=== PATIENT | female | born 1950 | race Caucasian/White ===

== ENCOUNTER 2018-12-17 03:41 | Emergency (ER) | payer OTHER ==
[~2018-12-17] VITALS: Ht 160 cm; Wt 86.2 kg
[~2018-12-17 03:41] MED LIST: ULTRAM50 MG PO
[2018-12-17 04:01] LABS: BASO % 0.5 % (0.0-1.0); EOS # 0.3 10*3/uL (0.0-0.4); EOS % 4.8 % (1.0-4.0); HEMATOCRIT 37.1 % (37.0-47.0); HEMOGLOBIN 11.9 g/dl (12.0-16.0); LYMPH # 1.6 10*3/uL (1.3-4.4); LYMPH % 29.4 % (27.0-41.0); MEAN CELL VOLUME 91.8 fl (81.0-99.0); MEAN CORPUSCULAR HGB 29.5 pg (27.0-31.0); MEAN CORPUSCULAR HGB CONC 32.1 g/dl (33.0-37.0); MEAN PLATELET VOLUME 10.9 fl (9.6-12.3); MONO # 0.5 10*3/uL (0.1-1.0); MONO % 8.4 % (3.0-9.0); NEUT # 3.2 10*3/uL (2.3-7.9); NEUT % 56.5 % (47.0-73.0); PLATELET COUNT AUTOMATED 165 10*3/uL (130-400); RED BLOOD COUNT 4.04 10*6/uL (4.10-5.10); WHITE BLOOD COUNT 5.6 10*3/uL (4.8-10.8)
[2018-12-17 04:12] LABS: ACT PARTIAL THROMBO TIME 24.5 SECONDS (20.0-32.1)
[2018-12-17 04:15] LABS: ALBUMIN 3.9 gm/dl (3.1-4.5); ALKALINE PHOSPHATASE 57 U/L (45-117); BUN 27 mg/dl (7-24); CHLORIDE 106 mmol/L (98-107); CREATININE 1.02 mg/dL (0.55-1.02); SGOT/AST 21 IU/L (3-35); SGPT/ALT 24 U/L (12-78); SODIUM 141 mmol/L (136-145); TOTAL PROTEIN 6.8 gm/dL (6.4-8.2)
[2018-12-17 05:34] VITALS: BP 129/58
== END 2018-12-17 06:57 | disposition short-term general hospital (02) ==
LOC: ED 03:41
PROVIDERS: Emergency Medicine Emergency Medical Services
DX: R04.0 Epistaxis (principal); D68.8 Other specified coagulation defects; I10 Essential (primary) hypertension; Z88.6 Allergy status to analgesic agent

== ENCOUNTER 2019-06-06 11:30 | Inpatient (IN) | payer OTHER ==
[~2019-06-06] VITALS: Ht 144.7 cm; Wt 80.1 kg
[2019-06-06 11:44] VITALS: BP 139/58
[2019-06-06 13:00] LABS: BASO % 0.3 % (0.0-1.0); EOS # 0.1 10*3/uL (0.0-0.4); EOS % 1.7 % (1.0-4.0); HEMOGLOBIN 12.1 g/dl (12.0-16.0); LYMPH # 1.3 10*3/uL (1.3-4.4); LYMPH % 19.8 % (27.0-41.0); MEAN CELL VOLUME 85.2 fl (81.0-99.0); MEAN CORPUSCULAR HGB 27.1 pg (27.0-31.0); MEAN CORPUSCULAR HGB CONC 31.8 g/dl (33.0-37.0); MEAN PLATELET VOLUME 11.1 fl (9.6-12.3); MONO # 0.6 10*3/uL (0.1-1.0); MONO % 9.1 % (3.0-9.0); NEUT # 4.6 10*3/uL (2.3-7.9); NEUT % 68.9 % (47.0-73.0); PLATELET COUNT AUTOMATED 214 10*3/uL (130-400); RED BLOOD COUNT 4.46 10*6/uL (4.10-5.10); RED CELL DISTRI WIDTH 17.2 % (0-14.5); WHITE BLOOD COUNT 6.6 10*3/uL (4.8-10.8)
[2019-06-06 13:10] LABS: ACT PARTIAL THROMBO TIME 26.8 SECONDS (20.0-32.1)
[2019-06-06 13:18] LABS: ALBUMIN 3.9 gm/dl (3.1-4.5); ALKALINE PHOSPHATASE 62 U/L (45-117); BUN 26 mg/dl (7-24); CHLORIDE 103 mmol/L (98-107); CREATININE 0.97 mg/dL (0.55-1.02); LIPASE 132 U/L (73-393); POTASSIUM 3.5 mmol/L (3.5-5.1); SGOT/AST 22 IU/L (3-35); SGPT/ALT 25 U/L (12-78); SODIUM 137 mmol/L (136-145); TOTAL PROTEIN 7.4 gm/dL (6.4-8.2)
[2019-06-06 13:21] LABS: TROPONIN I < 0.015 ng/ml (<0.045)
[2019-06-06] MEDS ORDERED: ATENOLOL-CHLOR1 EAC1 PO (15:47)
[2019-06-06] MEDS ORDERED: PRAVASTATIN SOD20 MG PO (15:48)
[2019-06-06] MEDS ORDERED: LISINOPRIL10 M1 PO (15:48)
[2019-06-06] MEDS ORDERED: FENOFIBRATE145 M1 PO (15:48)
[2019-06-06] MEDS ORDERED: POTASSIUM CHLOR8 ME1 PO (15:49)
[2019-06-06] MEDS ORDERED: OMEPRAZOLE MAGN20 MG PO (15:49)
[2019-06-06] MEDS ORDERED: LEVOTHYROXINE100 MC1 PO (15:49)
[2019-06-06] MEDS ORDERED: ALPRAZOLAM0.25 M2 PO (15:50)
[2019-06-06] MEDS ORDERED: FLINTSTONES1 EAC1 PO (15:51)
[2019-06-06 15:53] VITALS: BP 132/58
[2019-06-06 16:09] VITALS: BP 127/64
--- NOTE | 2019-06-06 17:08 | NUR ---
Time: 1700 A 68 year old FEMALE admitted to 4E under services of ANUJ PHIPPS DO, Pt. arrived via wheel chair from ER. Chief complaint: CHEST PAIN. PATIENT ORIENTED TO THE FLOOR 4E PATIENT FORMS REVIEWED AND COMPLETED CALL LIGHT REVIEWED AND DEMONSTRATED ANJEL TORRES
--- NOTE | 2019-06-06 17:19 | NUR ---
MESSAGE LEFT WITH CARDIOLOGY ANSWERING SERVICE REGARDING ROUTINE CONSULT. CALL BACK NUMBER PROVIDED.
--- NOTE | 2019-06-06 17:26 | NUR ---
DR. LARSON IN TO SEE PATIENT AND DISCUSS PLAN OF CARE. NOTIFIED THAT PATIENT MED REC IS UP-TO-DATE.
[2019-06-06 17:48] VITALS: BP 155/69
[2019-06-06 20:00] VITALS: BP 133/56
[2019-06-07] VITALS: BP 136/65
--- NOTE | 2019-06-07 00:03 | NUR ---
MEDICATED WITH PRN TYLENOL FOR C/O BACK PAIN. WILL MONITOR
--- NOTE | 2019-06-07 06:28 | NUR ---
PATIENT DENYING CHEST PAIN AT THIS TIME
[2019-06-07 08:00] VITALS: BP 130/52
--- NOTE | 2019-06-07 08:00 | NUR ---
Patient resting quietly with no c/o discomfort. Respirations easy and regular. Vital signs stable. No overt distress. JESÚS SNIDER R
[2019-06-07 08:01] LABS: BASO % 0.4 % (0.0-1.0); EOS # 0.2 10*3/uL (0.0-0.4); EOS % 4.4 % (1.0-4.0); HEMATOCRIT 37.8 % (37.0-47.0); HEMOGLOBIN 12.1 g/dl (12.0-16.0); LYMPH # 1.3 10*3/uL (1.3-4.4); LYMPH % 26.4 % (27.0-41.0); MEAN CELL VOLUME 84.4 fl (81.0-99.0); MEAN PLATELET VOLUME 11.6 fl (9.6-12.3); MONO # 0.5 10*3/uL (0.1-1.0); MONO % 10.6 % (3.0-9.0); NEUT # 2.8 10*3/uL (2.3-7.9); NEUT % 57.8 % (47.0-73.0); PLATELET COUNT AUTOMATED 209 10*3/uL (130-400); RED BLOOD COUNT 4.48 10*6/uL (4.10-5.10); RED CELL DISTRI WIDTH 17.1 % (0-14.5); WHITE BLOOD COUNT 4.8 10*3/uL (4.8-10.8)
[2019-06-07 08:23] LABS: BUN 22 mg/dl (7-24); CHLORIDE 100 mmol/L (98-107); CHOLESTEROL 146 mg/dL (<200); CREATININE 0.93 mg/dL (0.55-1.02); PHOSPHOROUS 2.5 mg/dL (2.5-4.9); POTASSIUM 3.3 mmol/L (3.5-5.1); SODIUM 135 mmol/L (136-145); TRIGLYCERIDES 83 mg/dl (<150); VLDL CHOLESTEROL 17 mg/dL (6-40)
[2019-06-07 08:30] LABS: HDL CHOLESTEROL 37 mg/dl (40-60); LDL CHOLESTEROL 92 mg/dL (9-159)
[2019-06-07 08:37] LABS: VITAMIN D, 25-HYDROXY 25.4 ng/mL (30-100)
[2019-06-07] MEDS ORDERED: VITAMIN D32000 UNI1 PO (10:24)
--- NOTE | 2019-06-07 10:58 | NUR ---
Cotton Stripper in to talk to patient. Patient states lives at HOME with . There are 3 steps in the home. Physician: RAQUEL PATTERSON [facility]: [facility] Home health services: NONE Patient's level of ADLs: INDEPENDENT Patient has working utilities: YES DME: NONE Follow-up physician's appointment after d/c: WILL BE MADE BY HOSPITALIST NURSE DIRECTOR ON DISCHARGE Does patient want to access PORTAL?: NO Discharge plan PT LIVES AT HOME WITH HIS AND IS INDEPENDENT IN HIS CARE. DENIES HE WILL HAVE ANY NEEDS ON DISCHARGE. PLANS TO RETURN HOME WHEN MEDICALLY STABLE. WILL CONTINUE TO FOLLOW. STATES HE WILL HAVE A RIDE HOME.. SAMINA DUNN
--- NOTE | 2019-06-07 11:02 | NUR ---
Business Instructor in to talk to patient. Patient states lives at HOME with . There are 2 OUTSIDE steps in the home. Physician: HARMONY Pharmacy: [facility] Home health services: NONE Patient's level of ADLs: INDEPENDENT Patient has working utilities: YES DME: NONE Follow-up physician's appointment after d/c: WILL BE MADE BY HOSPITALIST NURSE DIRECTOR ON DISCHARGE Does patient want to access PORTAL?: NO Discharge plan PT LIVES AT HOME WITH HER AND IS INDEPENDENT IN HER CARE. DENIES SHE WILL HAVE ANY NEEDS ON DISCHARGE. PLANS TO RETURN HOME WHEN MEDICALLY STABLE. WILL CONTINUE TO FOLLOW. PT STATES WILL TAKE HER HOME ON DISCHARGE. SAMINA DNUN
[2019-06-07 12:00] VITALS: BP 130/58
--- NOTE | 2019-06-07 12:10 | NUR ---
Discharge instructions reviewed with patient/family. Patient receptive and verbalizes understanding. Follow-up care arranged. Written instructions given to patient/family. JESÚS SNIDER
== END 2019-06-07 12:10 | disposition home or self-care (01) | DRG 392 ==
LOC: ED 11:30 → EDHOLD 15:39 → 4E 15:39
PROVIDERS: Internal Medicine; Physician Assistant; ADMIT Internal Medicine
DX: R10.13 Epigastric pain (principal); R07.89 Other chest pain; R73.9 Hyperglycemia, unspecified; I10 Essential (primary) hypertension; E78.5 Hyperlipidemia, unspecified; E03.9 Hypothyroidism, unspecified; K21.9 Gastro-esophageal reflux disease without esophagitis; M79.89 Other specified soft tissue disorders; E66.9 Obesity, unspecified; Z96.642 Presence of left artificial hip joint; Z90.710 Acquired absence of both cervix and uterus; Z87.891 Personal history of nicotine dependence; Z82.49 Family history of ischemic heart disease and other diseases of the circulatory system; Z88.6 Allergy status to analgesic agent; Z79.899 Other long term (current) drug therapy; Z68.38 Body mass index [BMI] 38.0-38.9, adult

== ENCOUNTER 2019-12-07 00:34 | Observation (INO) | payer OTHER ==
[~2019-12-07] VITALS: Ht 144.8 cm; Wt 85.0 kg
[2019-12-07] VITALS (9 sets, daily range): BP systolic 121–166; BP diastolic 50–90
[~2019-12-07 00:34] MED LIST changes: +ALPRAZOLAM0.25 M2 PO; +ATENOLOL-CHLOR1 EAC1 PO; +FENOFIBRATE145 M1 PO; +FLINTSTONES1 EAC1 PO; +LEVOTHYROXINE100 MC1 PO; +LISINOPRIL10 M1 PO; +OMEPRAZOLE MAGN20 MG PO; +POTASSIUM CHLOR8 ME1 PO; +PRAVASTATIN SOD20 MG PO; +VITAMIN D32000 UNI1 PO
[2019-12-07 01:13] LABS: BASO % 0.2 % (0.0-1.0); EOS # 0.2 10*3/uL (0.0-0.4); HEMATOCRIT 38.2 % (37.0-47.0); LYMPH # 0.9 10*3/uL (1.3-4.4); LYMPH % 20.6 % (27.0-41.0); MEAN CELL VOLUME 83.8 fl (81.0-99.0); MEAN CORPUSCULAR HGB 27.2 pg (27.0-31.0); MEAN CORPUSCULAR HGB CONC 32.5 g/dl (33.0-37.0); MEAN PLATELET VOLUME 10.4 fl (9.6-12.3); MONO # 0.5 10*3/uL (0.1-1.0); MONO % 11.6 % (3.0-9.0); NEUT # 2.8 10*3/uL (2.3-7.9); NEUT % 63.4 % (47.0-73.0); PLATELET COUNT AUTOMATED 198 10*3/uL (130-400); RED BLOOD COUNT 4.56 10*6/uL (4.10-5.10); RED CELL DISTRI WIDTH 15.4 % (0-14.5); WHITE BLOOD COUNT 4.5 10*3/uL (4.8-10.8)
[2019-12-07 01:26] LABS: ACT PARTIAL THROMBO TIME 27.1 SECONDS (20.0-32.1)
[2019-12-07 01:30] LABS: ALBUMIN 3.6 gm/dl (3.1-4.5); ALKALINE PHOSPHATASE 56 U/L (45-117); BUN 18 mg/dl (7-24); CHLORIDE 106 mmol/L (98-107); CREATININE 0.88 mg/dL (0.55-1.02); POTASSIUM 3.2 mmol/L (3.5-5.1); SGOT/AST 19 IU/L (3-35); SGPT/ALT 26 U/L (12-78); SODIUM 138 mmol/L (136-145); TOTAL PROTEIN 7.3 gm/dL (6.4-8.2)
[2019-12-07 01:37] LABS: TROPONIN I < 0.015 ng/ml (<0.045)
--- NOTE | 2019-12-07 01:52 | NUR ---
FIDELINA EFFECTIVE MONITOR NSR 80'S AT THIS TIME.PT STATES SHE IS FEELING BETTER.---DANIEL CONTRERAS RN
[2019-12-07] MEDS ORDERED: POTASSIUM CHLO10 ME4 PO (04:28)
[2019-12-07] MEDS ORDERED: FUROSEMIDE20 M1 PO (04:28)
--- NOTE | 2019-12-07 04:38 | NUR ---
IV SITE LEFT AC D/C'ED DUE TO FEELING SORE AND SLIGHTLY PUFFY.NEW IV TO BE INSERTED---DANIEL CONTRERAS RN
--- NOTE | 2019-12-07 06:00 | NUR ---
A 69, admitted to , under the services of JW Pina DO with a diagnosis of NEW ONSET ATRIAL FIBRILLATION. Chief complaint is SHORTNESS OF BREATH. Patient arrived via bed from ER. Monitor applied. Initial assessment completed. Vital signs taken and recorded. JW PINA DO notified of admission to the unit. Orders received. See assessment for past medical history, medications and allergies. Patient and/or family oriented to unit. [facility]. Clothing/patient valuable form completed. RANDAL PFEIFFER
--- NOTE | 2019-12-07 06:12 | NUR ---
PATIENT STATES THAT WILL BRING LIST OF MEDICATIONS FROM HOME LATER TODAY
[2019-12-07 07:06] LABS: BASO % 0.5 % (0.0-1.0); EOS # 0.1 10*3/uL (0.0-0.4); EOS % 2.4 % (1.0-4.0); HEMATOCRIT 37.1 % (37.0-47.0); LYMPH # 0.9 10*3/uL (1.3-4.4); LYMPH % 14.6 % (27.0-41.0); MEAN CELL VOLUME 85.1 fl (81.0-99.0); MEAN CORPUSCULAR HGB 27.3 pg (27.0-31.0); MEAN CORPUSCULAR HGB CONC 32.1 g/dl (33.0-37.0); MEAN PLATELET VOLUME 10.3 fl (9.6-12.3); MONO # 0.6 10*3/uL (0.1-1.0); NEUT # 4.2 10*3/uL (2.3-7.9); PLATELET COUNT AUTOMATED 188 10*3/uL (130-400); RED BLOOD COUNT 4.36 10*6/uL (4.10-5.10); RED CELL DISTRI WIDTH 15.7 % (0-14.5); WHITE BLOOD COUNT 5.9 10*3/uL (4.8-10.8)
[2019-12-07 07:17] LABS: INTERNATIONAL NORM RATIO 1.1 (2.0-3.5)
[2019-12-07 07:34] LABS: ALBUMIN 3.5 gm/dl (3.1-4.5); ALKALINE PHOSPHATASE 54 U/L (45-117); BUN 16 mg/dl (7-24); CHLORIDE 106 mmol/L (98-107); CHOLESTEROL 143 mg/dL (<200); CREATININE 0.75 mg/dL (0.55-1.02); HDL CHOLESTEROL 46 mg/dl (40-60); LDL CHOLESTEROL 83 mg/dL (9-159); POTASSIUM 3.5 mmol/L (3.5-5.1); SGOT/AST 18 IU/L (3-35); SGPT/ALT 22 U/L (12-78); SODIUM 139 mmol/L (136-145); TOTAL PROTEIN 6.9 gm/dL (6.4-8.2); TRIGLYCERIDES 70 mg/dl (<150); VLDL CHOLESTEROL 14 mg/dL (6-40)
--- NOTE | 2019-12-07 08:05 | NUR ---
PT RESTING IN BED. NO DISTRESS NOTED. WILL MONITOR
--- NOTE | 2019-12-07 08:27 | NUR ---
CALLED SHORTY AGUILAR TO NOTIFY OF CONSULT
[2019-12-07] MEDS ORDERED: CARDIZEM CD180 MG PO (10:43)
[2019-12-07] MEDS ORDERED: MINIPRESS1 MG PO (10:43)
--- NOTE | 2019-12-07 11:20 | NUR ---
PT HOME MEDS VERIFIED WITH [facility] AND WITH PT HOME MED LIST
--- NOTE | 2019-12-07 15:00 | NUR ---
DR RENEE NOTIFIED OF PT C/O HEARTBURN. ORDERS TO FOLLOW.
--- NOTE | 2019-12-07 16:00 | NUR ---
PT STATES TUMS WERE EFFECTIVE. CALL LIGHT IN REACH. WILL MONITOR
--- NOTE | 2019-12-07 20:00 | NUR ---
PATIENT ASSESSMENT COMPLETED AT THIS TIME WITHOUT INCIDENT. PATIENT DENIES ANY CHEST PAIN OR SHORTNESS OF BREATH AT THIS TIME. REMAINS ON ROOM AIR. CALL LIGHT WITHIN REACH, WILL CONTINUE TO MONITOR.
[2019-12-08] VITALS: BP 126/55
--- NOTE | 2019-12-08 03:42 | NUR ---
24 HOUR CHART CHECK COMPLETE
--- NOTE | 2019-12-08 07:30 | NUR ---
PT RESTING IN CHAIR. VOICES NO CONCERNS AT THIS TIME.RESPS EASY AND NON LABORED. NO S/S OF DISTRESS NOTED. VSS. WHITE BOARD UPDATED. POC DISCUSSED W PT. A/O X3. PT DENIES CP/P/SOB.2+ BLE NOTED.STATES SHE DOES NOT WANT FORD HOSE APPLIED. WILL CONTINUE TO MONITOR. CALL LIGHT WITHIN REACH
[2019-12-08 08:00] VITALS: BP 144/56
--- NOTE | 2019-12-08 09:00 | NUR ---
Wing Coverer in to talk to patient. Patient states lives at home with . There are 2 steps in the home. Physician: sunshine Pharmacy: [facility] Home health services: none Patient's level of ADLs: INDEPENDENT Patient has working utilities: all working DME: none Follow-up physician's appointment after d/c: will be made by hospitalist nurse director upon discharge Does patient want to access PORTAL?: no Discharge plan discussed with patient, she states she lives at home with her , she is independent in adls and ambulation, has a cane and walker at home but hasn't used it since her knee surgery. she states she will return home when discharged and denies any home needs, case management will follow, she stated her will transport her home when discharged. BENSON RODRIGUEZ
[2019-12-08 12:00] VITALS: BP 140/50
[2019-12-08] MEDS ORDERED: XARE20MG PO (13:15)
--- NOTE | 2019-12-08 13:54 | NUR ---
Discharge instructions reviewed with patient/family. Patient receptive and verbalizes understanding. Follow-up care arranged. Written instructions given to patient/family. DAVIE GALDAMEZ The Discharge Plan/Instructions have been completed. Hep Lock discontinued. Site asymptomatic. Pressure applied. Sterile dressing applied. DAVIE GALDAMEZ
== END 2019-12-08 13:53 | disposition home or self-care (01) ==
LOC: ED 00:34 → EDHOLD 03:47 → 5E 04:14
PROVIDERS: Emergency Medicine; Student in an Organized Health Care Education/Training Program; ADMIT Family Medicine
DX: I48.91 Unspecified atrial fibrillation (principal); R65.10 Systemic inflammatory response syndrome (SIRS) of non-infectious origin without acute organ dysfunction; R06.82 Tachypnea, not elsewhere classified; D72.810 Lymphocytopenia; E87.6 Hypokalemia; I10 Essential (primary) hypertension; E66.9 Obesity, unspecified; E78.5 Hyperlipidemia, unspecified; E03.9 Hypothyroidism, unspecified; K21.9 Gastro-esophageal reflux disease without esophagitis

== ENCOUNTER → 2020-01-09 | Outpatient (CLI) | payer OTHER ==
[~2020-01-09] MED LIST changes: +CARDIZEM CD180 MG PO; +FUROSEMIDE20 M1 PO; +MINIPRESS1 MG PO; +POTASSIUM CHLO10 ME4 PO; +XARE20MG PO
== END | disposition home or self-care (01) ==
LOC: LAB 14:42
PROVIDERS: ATTEND Student in an Organized Health Care Education/Training Program
DX: I10 Essential (primary) hypertension (principal); R06.02 Shortness of breath

== ENCOUNTER → 2020-04-11 | Outpatient (CLI) | payer OTHER | END | disposition home or self-care (01) | LOC: US 11:22 | PROVIDERS: ATTEND Internal Medicine | DX: R22.42 Localized swelling, mass and lump, left lower limb (principal) ==

== ENCOUNTER → 2022-03-17 | Outpatient (CLI) | payer OTHER | END | disposition home or self-care (01) | LOC: US 03-15 09:30 | PROVIDERS: ATTEND Internal Medicine | DX: I65.23 Occlusion and stenosis of bilateral carotid arteries (principal); I10 Essential (primary) hypertension; E78.5 Hyperlipidemia, unspecified ==

== ENCOUNTER 2022-09-04 23:30 | Emergency (ER) | payer MEDICARE ==
[~2022-09-04] VITALS: Ht 144.7 cm; Wt 83.9 kg
[2022-09-04 23:49] VITALS: BP 151/61
[2022-09-04] MEDS ORDERED: MICARDIS40 M1 PO (23:53)
[2022-09-04] MEDS ORDERED: METOPROLOL25 MG PO (23:54)
[2022-09-04] MEDS ORDERED: AMLODIPINE BESY10 MG PO (23:55)
[2022-09-04] MEDS ORDERED: VITAMIN D PO (23:57)
[2022-09-04] MEDS ORDERED: PANTOPRAZOLE SO40 MG PO (23:58)
[2022-09-04] MEDS ORDERED: LASIX40 MG PO (23:59)
[2022-09-05] MEDS ORDERED: ASPIRIN CHEWABL81 MG PO (00:01)
[2022-09-05 00:51] LABS: BASO % 0.6 % (0.0-1.0); EOS # 0.2 10*3/uL (0.0-0.4); EOS % 3.6 % (1.0-4.0); HEMATOCRIT 34.3 % (37.0-47.0); LYMPH # 1.2 10*3/uL (1.3-4.4); LYMPH % 25.2 % (27.0-41.0); MEAN CELL VOLUME 87.3 fl (81.0-99.0); MEAN CORPUSCULAR HGB CONC 33.2 g/dl (33.0-37.0); MEAN PLATELET VOLUME 10.5 fl (9.6-12.3); MONO # 0.6 10*3/uL (0.1-1.0); MONO % 13.2 % (3.0-9.0); NEUT # 2.7 10*3/uL (2.3-7.9); PLATELET COUNT AUTOMATED 194 10*3/uL (130-400); RED BLOOD COUNT 3.93 10*6/uL (4.10-5.10); RED CELL DISTRI WIDTH 13.9 % (0-14.5); WHITE BLOOD COUNT 4.7 10*3/uL (4.8-10.8)
[2022-09-05 01:07] LABS: INTERNATIONAL NORM RATIO 1.1 (2.0-3.5)
[2022-09-05 01:40] LABS: TOTAL PROTEIN 6.9 gm/dL (6.0-8.0)
== END 2022-09-05 03:44 | disposition home or self-care (01) ==
LOC: ED 23:30
PROVIDERS: Emergency Medicine
DX: R03.1 Nonspecific low blood-pressure reading (principal); I11.0 Hypertensive heart disease with heart failure; I50.9 Heart failure, unspecified; I48.91 Unspecified atrial fibrillation; Z88.1 Allergy status to other antibiotic agents; Z88.8 Allergy status to other drugs, medicaments and biological substances; Z90.710 Acquired absence of both cervix and uterus; Z90.49 Acquired absence of other specified parts of digestive tract; Z98.890 Other specified postprocedural states; Z90.13 Acquired absence of bilateral breasts and nipples; Z87.891 Personal history of nicotine dependence

== ENCOUNTER → 2023-02-11 | Outpatient (CLI) | payer MEDICARE ==
[~2023-02-11] MED LIST changes: +AMLODIPINE BESY10 MG PO; +ASPIRIN CHEWABL81 MG PO; +LASIX40 MG PO; +METOPROLOL25 MG PO; +MICARDIS40 M1 PO; +PANTOPRAZOLE SO40 MG PO; +VITAMIN D PO
== END | disposition home or self-care (01) ==
LOC: US 01:02
PROVIDERS: ATTEND Internal Medicine
DX: R10.11 Right upper quadrant pain (principal)

== ENCOUNTER → 2023-11-16 | Outpatient (CLI) | payer MEDICARE ==
[~2023-11-16] MED LIST changes: +Regadenoson 0.4 MG/5 ML SYR IV ONE; +Technetium Tc 99M Tetrofosmi 0.23 MG KIT IJ SCH
== END | disposition home or self-care (01) ==
LOC: CARD 01:38
PROVIDERS: ATTEND Internal Medicine
DX: I08.1 Rheumatic disorders of both mitral and tricuspid valves (principal); I48.91 Unspecified atrial fibrillation; I44.0 Atrioventricular block, first degree